=== PATIENT | male | born 1960 | race African-American/Black ===

== ENCOUNTER 2020-07-29 16:59 | Emergency (ER) | payer OTHER, SELFPAY ==
--- NOTE | 2020-07-29 17:08 | ED.EAR ---
HPI - Ear Problem General Chief complaint: Ear Stated complaint: Stopped up Ears Time Seen by Provider: 07/29/20 17:08 Source: patient and RN notes reviewed History of Present Illness HPI Narrative: Patient is a 59-year-old male who presents the urgent care with complaints of stopped ears . Patient states that he has felt that way for the last couple days. Denies of any use of [id number] medication for his symptoms. States that he does have some nasal congestion in the morning which seems to improve fairly quickly. Denies of any fever, nausea, vomiting, drainage from the ears. Denies of any other upper respiratory symptoms. No other acute complaints. No acute distress noted. Patient aware of the plan of care. Some parts of this dictation were generated by voice recognition software and may contain typographical and/or grammatical inaccuracies. Related Data Home Medications Medication Instructions Recorded Confirmed hydrochlorothiazide 07/29/20 losartan 07/29/20 metformin mg 07/29/20 sildenafil 07/29/20 tamsulosin mg PO 07/29/20 Allergies Allergy/AdvReac Type Severity Reaction Status Date / Time No Known Allergies Allergy Verified 07/29/20 17:01 Review of Systems Review of Systems: Narrative: CONSTITUTIONAL: Denies fever, chills, or sweats. EYES: Denies visual changes, redness, or discharge. ENT: Reports of stopped up ears and morning nasal congestion CARDIOVASCULAR: Denies chest pain, palpitations, or edema. RESPIRATORY: Denies cough or dyspnea. GASTROINTESTINAL: Denies abdominal pain, nausea, vomiting, or diarrhea. GENITOURINARY: Denies dysuria or hematuria. SKIN: Denies rash or itching. MUSCULOSKELETAL: Denies back pain, joint pain, or myalgia. NEUROLOGIC: Denies headache, numbness, or weakness. All other systems reviewed are negative, except as documented in HPI. PMFSH Comments At the time of my signature, I reviewed and agree with the nursing past medical, surgical, social, and family history. There is no relevant family history pertinent to the patient complaint. Exam Narrative: Exam Narrative: GENERAL: This is a well-nourished, well-developed patient, in no apparent distress. HEAD: normocephalic, atraumatic. EYES: PERRL. Sclera clear/white. Vision is grossly intact. EARS: External ears normal, auditory canals clear and without drainage, very mild fluid noted behind bilateral TMs without otitis, TMs normal without perforation. Hearing grossly intact. NOSE: External nose normal with no obvious nasal discharge, nares without redness, no rhinorrhea. THROAT: Mucous membranes moist, posterior pharynx clear. Mild postnasal drainage NECK: Neck supple SKIN: warm, intact with no suspicious lesions or rash, good texture and turgor. NEURO: awake, alert, and oriented to person, place and time. There were no obvious focal neurologic abnormalities. EXTREMITIES: No clubbing, cyanosis, or edema. Course Vital Signs Vital signs: Vital Signs Temperature 97.1 F L 07/29/20 17:10 Pulse Rate 66 07/29/20 17:10 Respiratory Rate 16 07/29/20 17:10 Blood Pressure 123/68 07/29/20 17:10 Pulse Oximetry 100 07/29/20 17:10 Temperature 97.1 F L 07/29/20 17:10 Pulse Rate 66 07/29/20 17:10 Respiratory Rate 16 07/29/20 17:10 Blood Pressure 123/68 07/29/20 17:10 Pulse Oximetry 100 07/29/20 17:10 Reviewed Medical Decision Making MDM Narrative Medical decision making narrative: Advised the patient to use Flonase and Claritin as directed daily. May also use Benadryl as needed in the evening prior to bedtime. Do not take Benadryl and Claritin together at the same time. May use an warm compress to the ears as needed for comfort. Do not put anything in the ear such as Q-tips, water, peroxide. Follow-up with your PCP within 2 to 5 days or for worsening symptoms or failure to improve. Differential Diagnosis Differential Diagnosis: Pneumonia, Allergic Rhinitis, Upper respiratory cough syn
[2020-07-29 17:10] VITALS: BP 123/68; PULSE 66; RESP 16; TEMP 36.2; O2SAT 100
== END 2020-07-29 17:31 | disposition home or self-care (01) ==
PROVIDERS: Emergency Provider Nurse Practitioner Family
DX: H92.03 Otalgia, bilateral (principal); I10 Essential (primary) hypertension; E11.9 Type 2 diabetes mellitus without complications
CPT/HCPCS: 99203; G0463